=== PATIENT | female | born 1995 | race African-American/Black ===

== ENCOUNTER 2019-03-21 06:04 | Inpatient (IN) ==
[2019-03-21] MEDS ORDERED: LACTATED RINGERS 500 ML IV PRN (07:03)
[2019-03-21] MEDS ORDERED: ONDANSETRON 4 MG/2 ML VIAL IV PRN (07:03)
[2019-03-21] MEDS: LACTATED RINGERS 1,000 ML IV SCH ×2 (07:15→18:16)
[2019-03-21 07:19] LABS: Basophils % 0.2 % (0.0-0.8); Eosinophils # 0.1 10*3/uL (0.0-0.87); Eosinophils % 0.8 % (0.00-10.9); Hematocrit 34.1 VOL% (35.7-47.0); Hemoglobin 11.4 GM/DL (12.0-16.0); Immature Granulocytes % 0.8 %; Immature Granulocytes Absolute 0.09 #; Lymphocytes # 2.3 10*3/uL (1.4-4.0); Lymphocytes % 21.5 % (21.3-54.2); Mean Corpuscular HGB Conc 33.4 GM/DL (32-36); Mean Platelet Volume 10.2 FL (9.6-12.0); Monocytes % 8.9 % (1.7-12.7); NRBC # 0.02 10*3/uL; Neutrophils % 67.8 % (38.7-73.9); Platelet Count 289 T/CUMM (130-400); Red Blood Count 4.21 MC/CUMM (3.8-5.5); Red Cell Distribution Width 14.4 % (9.3-17.3); White Blood Count 10.9 T/CUMM (4-12)
[2019-03-21] MEDS ORDERED: AMPICILLIN INJ 2,000 MG in SODIUM CHLORIDE 0.9% 100 ML IV ONE (07:30)
[2019-03-21] MEDS ORDERED: SODIUM CHLORIDE 0.9% 100 ML IV ONE (07:44)
[2019-03-21] MEDS: OXYTOCIN/LR 20 UNIT/1,000 ML BAG IV SCH (07:48)
[2019-03-21] MEDS: AMPICILLIN INJ 1,000 MG in SODIUM CHLORIDE 0.9% 100 ML IV SCH ×4 (11:37→23:32)
[2019-03-21] MEDS: BUTORPHANOL 2 MG/ML VIAL IV PRN ×2 (20:11→23:39)
[2019-03-22] MEDS ORDERED: ePHEDrine 50 MG/ML AMP IV PRN (02:04)
[2019-03-22] MEDS ORDERED: PROMETHAZINE 25 MG/1 ML VIAL IM ONE (02:04)
[2019-03-22] MEDS ORDERED: CITRIC ACID/SODIUM CITRATE 30 ML UDCUP PO ONE (02:04)
[2019-03-22] MEDS ORDERED: NALOXONE 0.4 MG/ML VIAL IV PRN (02:04)
[2019-03-22] MEDS ORDERED: diphenhydrAMINE 50 MG/1 ML VIAL IV PRN (02:04)
[2019-03-22] MEDS ORDERED: FAMOTIDINE 20 MG/2 ML VIAL IV ONE (02:04)
[2019-03-22] MEDS ORDERED: fentaNYL 2 MCG/ROPIV 0.2% EPID 100 ML EPIDURAL SCH (02:30)
[2019-03-22] MEDS: LACTATED RINGERS 1,000 ML IV SCH ×2 (02:41→11:21)
[2019-03-22] MEDS: AMPICILLIN INJ 1,000 MG in SODIUM CHLORIDE 0.9% 100 ML IV SCH ×3 (03:40→11:20)
[2019-03-22 05:25] LABS: Apearance,Urine CLEAR (Clear); Bilirubin,Urine Negative (Negative); Blood, Urine Negative (Negative); Glucose,Urine (UA) Negative (Negative); Ketones,Urine 80 mg/dL (Negative); Mucus,Urine Occasional /LPF (Occasional); Nitrite,Urine Negative (Negative); Protein,Urine Negative; RBC,Urine <1 /HPF (0-4); Urine Color Yellow (Yellow); Urine Specific Gravity 1.013 (1.001-1.035); Urine Urobilinogen < 2.0 EU/DL (0.2-1.0)
[2019-03-22] MEDS: OXYTOCIN/LR 20 UNIT/1,000 ML BAG IV SCH (06:25)
[2019-03-22] MEDS ORDERED: miSOPROStol 200 MCG TABLET ONE (11:53)
[2019-03-22] MEDS ORDERED: LIDOCAINE 1% 50 ML VIAL ONE (11:53)
[2019-03-22] MEDS ORDERED: METHYLERGONOVINE 0.2 MG/1 ML AMP ONE (11:54)
[2019-03-22] MEDS ORDERED: METHYLERGONOVINE 0.2 MG/1 ML AMP IM ONE (12:45)
[2019-03-22 13:11] LABS: Cord Arterial Blood HCO3 16.9 MMOL/L
[2019-03-22 13:15] LABS: Cord Venous Blood HCO3 20.1 MMOL/L; Cord Venous Blood PCO2 40.7 MMHG; Cord Venous Blood PO2 36.6
[2019-03-22] MEDS ORDERED: BISACODYL 10 MG SUPP RECTAL PRN (13:19)
[2019-03-22] MEDS ORDERED: ONDANSETRON 4 MG/2 ML VIAL IV PRN (13:19)
[2019-03-22] MEDS ORDERED: LANOLIN 50% CREAM 0.3 OZ TUBE TOP PRN (13:19)
[2019-03-22] MEDS ORDERED: MEASLES/MUMPS/RUBELLA VACCINE 0.5 ML VIAL SUBCUT ONE (13:19)
[2019-03-22] MEDS ORDERED: DIPH/TET/ACEL PERT BOOSTER VACCINE 0.5 ML VIAL IM ONE (13:19)
[2019-03-22] MEDS ORDERED: ACETAMINOPHEN 325 MG TABLET PO PRN (13:19)
[2019-03-22] MEDS ORDERED: RHO(D) IMMUNE GLOBULIN 300 MCG SYRINGE IM ONE (13:19)
[2019-03-22] MEDS ORDERED: WITCH HAZEL PADS 100/JAR TOP PRN (13:19)
[2019-03-22] MEDS ORDERED: OXYTOCIN/LR 20 UNIT/1,000 ML BAG IV ONE (13:19)
[2019-03-22] MEDS ORDERED: oxyCODONE/ACETAMINOPHEN 5-325 MG TABLET PO PRN (13:19)
[2019-03-22] MEDS ORDERED: HYDROCORTISONE 2.5% RECTAL CREAM 30 GM TUBE TOP PRN (13:19)
[2019-03-22] MEDS ORDERED: METHYLERGONOVINE 0.2 MG TABLET PO SCH (14:00)
[2019-03-22] MEDS: IBUPROFEN 800 MG TABLET PO PRN (14:59)
[2019-03-22] MEDS: METHYLERGONOVINE 0.2 MG/1 ML AMP IM SCH (18:48)
[2019-03-22] MEDS: oxyCODONE/ACETAMINOPHEN 5-325 MG TABLET PO PRN (19:34)
[2019-03-22] MEDS: DOCUSATE SODIUM 100 MG CAPSULE PO SCH (21:04)
[2019-03-23] MEDS: METHYLERGONOVINE 0.2 MG/1 ML AMP IM SCH ×2 (00:53→06:07)
[2019-03-23 05:02] LABS: Basophils % 0.2 % (0.0-0.8); Eosinophils # 0.1 10*3/uL (0.0-0.87); Eosinophils % 0.5 % (0.00-10.9); Hematocrit 30.5 VOL% (35.7-47.0); Hemoglobin 10.6 GM/DL (12.0-16.0); Immature Granulocytes % 0.7 %; Immature Granulocytes Absolute 0.12 #; Lymphocytes # 3.2 10*3/uL (1.4-4.0); Lymphocytes % 18.4 % (21.3-54.2); Mean Corpuscular HGB Conc 34.8 GM/DL (32-36); Mean Corpuscular Volume 80.5 FL (87-102); Mean Platelet Volume 10.5 FL (9.6-12.0); Monocytes % 9.3 % (1.7-12.7); Neutrophils % 70.9 % (38.7-73.9); Platelet Count 269 T/CUMM (130-400); Red Blood Count 3.79 MC/CUMM (3.8-5.5); Red Cell Distribution Width 14.4 % (9.3-17.3); White Blood Count 17.3 T/CUMM (4-12)
[2019-03-23] MEDS: IBUPROFEN 800 MG TABLET PO PRN (06:14)
[2019-03-23] MEDS: oxyCODONE/ACETAMINOPHEN 5-325 MG TABLET PO PRN (07:36)
[2019-03-23] MEDS: BENZOCAINE 20%/MENTHOL 0.5% SPRAY 56 GM CAN TOP PRN (09:05)
[2019-03-23] MEDS: DOCUSATE SODIUM 100 MG CAPSULE PO SCH ×2 (09:05→20:41)
[2019-03-24 07:51] VITALS: BP 127/69
[2019-03-24] MEDS: BENZOCAINE 20%/MENTHOL 0.5% SPRAY 56 GM CAN TOP PRN (07:57)
[2019-03-24] MEDS: DOCUSATE SODIUM 100 MG CAPSULE PO SCH (09:14)
== END 2019-03-24 12:45 | disposition home or self-care (01) | DRG 768 ==
LOC: N.LDOUT 06:04 → N.LD 06:06 → N.OB 03-22 15:55
PROVIDERS: ADMIT Obstetrics & Gynecology; ATTEND Obstetrics & Gynecology